=== PATIENT | male | born 1975 | race African-American/Black ===

== ENCOUNTER 2022-11-29 07:22 | Day surgery (SDC) | payer BC ==
[2022-11-27 15:43] VITALS: BMI 51.2
[2022-11-29] MEDS ORDERED: PROPOFOL 40 ML ONE (07:34)
[2022-11-29] MEDS ORDERED: PROPOFOL 20 ML ONE (08:51)
[2022-11-29 09:12] VITALS: RESP 16; TEMP 96.9
[2022-11-29 09:28] VITALS: BP 126/72; PULSE 63
== END 2022-11-29 09:33 | disposition home or self-care (01) ==
LOC: FASU-ENDO 07:22
PROVIDERS: ATTEND Internal Medicine Gastroenterology
PROC: 0DJD8ZZ Inspection of Lower Intestinal Tract, Via Natural or Artificial Opening Endoscopic (ICD-10-PCS; principal; 2022-11-29 08:46)
DX: Z12.11 Encounter for screening for malignant neoplasm of colon (principal)